=== PATIENT | female | born 1945 | race Caucasian/White ===

== ENCOUNTER 2017-10-20 12:03 | Day surgery (SDC) | payer OTHER ==
--- NOTE | 2017-10-20 09:10 | GHP ---
[f rep st] HISTORY AND PHYSICAL DATE OF ADMISSION: 10/20/2017 CHIEF COMPLAINT: Left groin mass. HISTORY OF PRESENT ILLNESS: The patient is a 72-year-old woman, who presented to the hospital approximately one year ago with a painful hernia. She developed a large seroma postoperatively. It is not totally resolved. She is continuing to have pain while sitting, bending and most movements. The pain is constant but is worsening with anything that puts a crease in her inguinal region. Nothing makes the pain better. She is very frustrated. PAST MEDICAL HISTORY: Colon cancer. PAST SURGICAL HISTORY: Right hemicolectomy, lysis of adhesions, PowerPort and excisional breast biopsy. ALLERGIES: Erythromycin and dyes SOCIAL HISTORY: She works at [employer]. She is a nonsmoker. REVIEW OF SYSTEMS: A 10-point review of systems negative. PHYSICAL EXAMINATION: GENERAL: Pleasant, well-nourished, well-groomed woman. PSYCHIATRIC: Frustrated. HEENT: Normocephalic. No gross hearing deficits. Mucous membranes moist. Pupils equal and round. No scleral icterus. LUNGS: Clear to auscultation bilaterally. No increased work of breathing. CARDIAC: Regular rate. ABDOMEN: Bowel sounds present, soft, nontender. No evidence of hernia. She does have a palpable tender mass in her left groin. EXTREMITIES: Normal gait. Normal nails. SKIN: Warm and dry. IMPRESSION AND PLAN: A 72-year-old with a mass in left groin following inguinal hernia repair. It is painful. She has tried conservative measures. I will take her to the operating room to excise this mass. The risks and benefits, including, but not limited to, stroke, heart attack, , blood clots, infection, bleeding, continued pain were all discussed. She had her questions answered to her satisfaction and signed the informed consent. /[id number]/MODL MTDD
[~2017-10-20 12:03] MED LIST: ceFAZolin 2 GM/SWFI 2 GM/20 ML SYR IVP ONE
--- NOTE | 2017-10-20 12:40 | PDHPUP ---
History & Physical Update H&P update statement: This history and physical update is based on an assessment of the patient which was completed after admission or registration (within 24 hours), but prior to the surgery/procedure. H&P update: H&P reviewed & patient examined, no change in patient's condition since H&P completed
[2017-10-20] MEDS ORDERED: ceFAZolin 2 GM/SWFI 20 ML SYR IVP ONE (12:42)
[2017-10-20] MEDS ORDERED: LIDOCAINE 1% 2 ML INJ ONE (12:42)
[2017-10-20] MEDS ORDERED: BUPIVACAINE 0.5% 30 ML SDV ONE (12:49)
[2017-10-20] MEDS ORDERED: BUPIVACAINE/EPI 0.5% 30 ML SDV ONE (12:50)
[2017-10-20 12:56] VITALS: PULSE 115
[2017-10-20] MEDS ORDERED: LR 1,000 ML IV ONE (13:03)
[2017-10-20] MEDS ORDERED: LIDOCAINE 1% 2 ML INJ ID PRN (13:03)
[2017-10-20] MEDS ORDERED: fentaNYL 100 MCG/2 ML INJ ONE ×2 (13:15→13:37)
[2017-10-20] MEDS ORDERED: fentaNYL 100 MCG/2 ML INJ IVP ONE (13:30)
--- NOTE | 2017-10-20 13:30 | PDANEPAE ---
<Ildefonso Burrell - Last Filed: 10/20/17 18:27> ANE History of Present Illness Painful groin mass ANE Past Medical History - Cardiovascular History Hx Hypertension: No Hx Arrhythmias: No Hx Chest Pain: No Hx Coronary Artery / Peripheral Vascular Disease: No Hx CHF / Valvular Disease: No Hx Palpitations: No - Pulmonary History Hx COPD: No Hx Asthma/Reactive Airway Disease: No Hx Recent Upper Respiratory Infection: No Hx Oxygen in Use at Home: No Hx Sleep Apnea: No Sleep Apnea Screening Result - Last Documented: Negative - Neurologic History Hx Cerebrovascular Accident: No Hx Seizures: No Hx Dementia: No - Endocrine History Hx Diabetes: No - Renal History Hx Renal Disorders: No - Liver History Hx Hepatic Disorders: No - Neurological & Psychiatric Hx Hx Neurological and Psychiatric Disorders: No - Cancer History Hx Cancer: Yes Cancer History Comment: R colon - Congenital Disorder History Hx Congenital Disorders: No - GI History Hx Gastrointestinal Disorders: Yes Gastrointestinal History Comment: Left inguinal hernia, problem digesting olive oil - Other Health History Other Health History: none - Chronic Pain History Chronic Pain: No - Surgical History Prior Surgeries: Lap RHemi-colectomy 10-19, Explor lap and port placed 11-20, removed 06-20, L shoulder mass excised 06-20, L breast mass -. ANE Review of Systems Review of Systems: - Exercise capacity METS (RN): 4 METS ANE Patient History - Allergies Allergies/Adverse Reactions: erythromycin base [Erythromycin Base] Allergy (Severe, Verified 08/27/16 10:57) SPASTIC PYLORIC VALUE BARBITUATES Allergy (Severe, Uncoded 12/02/11 13:34) EXTREMELY EXCITED/AGITATED DYES IN FOOD Allergy (Intermediate, Uncoded 12/02/11 13:34) HIVES/RASH ADHESIVE TAPE Allergy (Unknown, Uncoded 09/07/12 13:29) Rash - Home Medications Home medications: home medication list seen and reviewed Home Medications: Vitamin B-12 08/27/16 [Last Taken 10/19/17] [place] 5/325 (*) 10/16/17 [Last Taken 10/20/17 04:00] - NPO status NPO Since - Liquids (Date): 10/20/17 NPO Since - Liquids (Time): 09:00 NPO Since - Solids (Date): 10/19/17 NPO Since - Solids (Time): 18:00 - Smoking Hx Smoking Status: Never smoked - Family Anes Hx Family Hx Anesthesia Complications: none ANE Labs/Vital Signs - Vital Signs Blood Pressure: 165/95 Heart Rate: 115 Respiratory Rate: 20 O2 Sat (%): 92 Height: 165.1 cm Weight: 70.307 kg ANE Physical Exam - Airway Neck exam: FROM ANE Anesthesia Plan Anesthesia Plan: GA w LMA <Zenon Rai - Last Filed: 10/22/17 20:01> ANE History of Present Illness Left groin pain ANE Review of Systems Review of Systems: ANE Physical Exam - Airway Neck exam: FROM Mallampati Score: Class 2 Mouth exam: normal dental/mouth exam - Pulmonary Pulmonary: no respiratory distress - Cardiovascular Cardiovascular: regular rate and rhythym - ASA Status ASA Status: II ANE Anesthesia Plan Anesthesia Plan: GA w LMA (I had no interaction with this pt. but have no way to refuse signature- Zenon Rai MD)
[2017-10-20] MEDS ORDERED: PROPOFOL 200 MG/20 ML VIAL ONE (13:37)
[2017-10-20] MEDS ORDERED: ONDANSETRON 4 MG/2 ML VIAL IVP PRN (14:05)
[2017-10-20] MEDS ORDERED: PROMETHAZINE HCL 25 MG/ML INJ IVP PRN (14:05)
[2017-10-20] MEDS ORDERED: fentaNYL 100 MCG/2 ML INJ IVP PRN (14:05)
[2017-10-20] MEDS ORDERED: HYDROmorphONE/DILAUDID 1 MG/ML INJ IVP PRN (14:05)
[2017-10-20] MEDS ORDERED: NALOXONE HCL 0.4 MG/ML INJ IVP PRN (14:05)
--- NOTE | 2017-10-20 14:10 | PDANEPAE ---
ANE History of Present Illness Left groin mass/pain ANE Past Medical History - Cardiovascular History Hx Hypertension: No Hx Arrhythmias: No Hx Chest Pain: No Hx Coronary Artery / Peripheral Vascular Disease: No Hx CHF / Valvular Disease: No Hx Palpitations: No - Pulmonary History Hx COPD: No Hx Asthma/Reactive Airway Disease: No Hx Recent Upper Respiratory Infection: No Hx Oxygen in Use at Home: No Hx Sleep Apnea: No Sleep Apnea Screening Result - Last Documented: Negative - Neurologic History Hx Cerebrovascular Accident: No Hx Seizures: No Hx Dementia: No - Endocrine History Hx Diabetes: No - Renal History Hx Renal Disorders: No - Liver History Hx Hepatic Disorders: No - Neurological & Psychiatric Hx Hx Neurological and Psychiatric Disorders: No - Cancer History Hx Cancer: Yes Cancer History Comment: R colon - Congenital Disorder History Hx Congenital Disorders: No - GI History Hx Gastrointestinal Disorders: Yes Gastrointestinal History Comment: Left inguinal hernia, problem digesting olive oil - Other Health History Other Health History: none - Chronic Pain History Chronic Pain: No - Surgical History Prior Surgeries: Lap RHemi-colectomy 10-19, Explor lap and port placed 11-20, removed 06-20, L shoulder mass excised 06-20, L breast mass 02-19. ANE Review of Systems Review of Systems: - Exercise capacity METS (RN): 4 METS ANE Patient History - Allergies Allergies/Adverse Reactions: erythromycin base [Erythromycin Base] Allergy (Severe, Verified 08/27/16 10:57) SPASTIC PYLORIC VALUE BARBITUATES Allergy (Severe, Uncoded 12/02/11 13:34) EXTREMELY EXCITED/AGITATED DYES IN FOOD Allergy (Intermediate, Uncoded 12/02/11 13:34) HIVES/RASH ADHESIVE TAPE Allergy (Unknown, Uncoded 09/07/12 13:29) Rash - Home Medications Home medications: home medication list seen and reviewed Home Medications: Vitamin B-12 08/27/16 [Last Taken 10/19/17] [place] 5/325 (*) 10/16/17 [Last Taken 10/20/17 04:00] - NPO status NPO Since - Liquids (Date): 10/20/17 NPO Since - Liquids (Time): 09:00 NPO Since - Solids (Date): 10/19/17 NPO Since - Solids (Time): 18:00 - Smoking Hx Smoking Status: Never smoked - Family Anes Hx Family Hx Anesthesia Complications: none ANE Labs/Vital Signs - Vital Signs Blood Pressure: 165/95 Heart Rate: 115 Respiratory Rate: 20 O2 Sat (%): 92 Height: 165.1 cm Weight: 70.307 kg ANE Physical Exam - Airway Neck exam: FROM Mallampati Score: Class 2 Mouth exam: normal dental/mouth exam - Pulmonary Pulmonary: no respiratory distress - Cardiovascular Cardiovascular: regular rate and rhythym - ASA Status ASA Status: II ANE Anesthesia Plan Anesthesia Plan: GA w LMA
[2017-10-20] MEDS ORDERED: ONDANSETRON 4 MG/2 ML VIAL ONE ×2 (14:20→17:15)
[2017-10-20] MEDS ORDERED: DEXAMETHASONE 4 MG/ML VIAL ONE (14:20)
--- NOTE | 2017-10-20 14:32 | POSTOPPROG ---
Post Op Note Date of Operation: 10/20/17 Surgeon: Savanna Perez Certified Ethical Hacker: kimi Anesthesiologist: pramod Anesthesia: GET(General Endotracheal) Pre-op Diagnosis: left groin mass Post-op Diagnosis: same Indication: 72 yo s/p left inguinal hernia. Procedure: excision left inguinal mass Findings: encapsulated Inf/Abcess present in the surg proc area at time of surgery?: No EBL: Minimal Specimen(s): micro and permanent
--- NOTE | 2017-10-20 14:43 | POSTANESTH ---
Post Anesthetic Evaluation Cardiovascular Status: Normal, Stable Respiratory Status: Normal, Stable Level of Consciousness/Mental Status: Can Participate in Eval Pain Control: Adequate, Prn Tx Ordered Nausea/Vomiting Control: Adequate, Prn Tx Ordered Complications Possibly Related to Anesthesia: None Noted
[2017-10-20 15:13] VITALS: TEMP 97.7
--- NOTE | 2017-10-20 17:59 | PDHOMEO2F ---
Home Oxygen Face to Face Home Orders: I certify that a physician or a nurse practitioner or physician's certified ophthalmic surgical assistant has had a [id number] encounter with this patient on the date of this order due to the diagnosis listed, which relates to the primary reason the patient requires home oxygen. Alternative treatments have been tried, or considered, and deemed ineffective. It is anticipated that supplemental oxygen will result in improvement with treatment. Home oxygen qualifying diagnosis: Post-op hypoxia SpO2 on room air (%): 84 Frequency of home oxygen needed: continuous Home oxygen liters per minute: 2 Home oxygen delivery device: nasal cannula Concentrator: No E-tanks for mobility and back up: Yes If ordering portable O2, is the patient mobile in the home?: Yes I certify that, based on these findings, the home oxygen is medically necessary for this patient for the following length of time. Length of time home oxygen needed: 1 week (To be evaluated tomorrow)
[2017-10-20 18:28] VITALS: RESP 20
[2017-10-20 18:41] VITALS: O2SAT 93
[2017-10-20 21:23] VITALS: BP 145/89
== END 2017-10-20 19:50 | disposition home or self-care (01) ==
LOC: FSGY 12:03
PROVIDERS: ATTEND Surgery
PROC: 0YB60ZX Excision of Left Inguinal Region, Open Approach, Diagnostic (ICD-10-PCS; principal; 2017-10-20 13:30)
DX: L90.5 Scar conditions and fibrosis of skin (principal); Z85.038 Personal history of other malignant neoplasm of large intestine; Z90.49 Acquired absence of other specified parts of digestive tract
CPT/HCPCS: J0690; J1100; J2405; J2704; J3010

== ENCOUNTER 2018-02-08 06:46 | Emergency (ER) | payer OTHER ==
--- NOTE | 2018-02-08 06:59 | CPEKG ---
Heart Rate: 108 RR Interval: 556 P-R Interval: 144 QRSD Interval: 72 QT Interval: 320 QTC Interval: 429 P Glidden: 45 QRS Glidden: -13 T Wave Glidden: 30 EKG Severity - ABNORMAL ECG - EKG Impression: SINUS TACHYCARDIA EKG Impression: LEFT VENTRICULAR HYPERTROPHY Electronically Signed By: Akil Gutierrez 08-Feb-2018 13:31:42
--- NOTE | 2018-02-08 07:00 | EDPHY ---
H & P Stated Complaint: left side CP Time Seen by Provider: 02/08/18 06:59 - Personal History Current Tetanus/Diphtheria Vaccine: Yes Current Tetanus Diphtheria and Acellular Pertussis (TDAP): Yes Tetanus Vaccine Date: 2002 - Medical/Surgical History Hx Asthma: No Hx Chronic Respiratory Disease: No Hx Diabetes: No Hx Cardiac Disease: No Hx Renal Disease: No Hx Cirrhosis: No Hx Alcoholism: No Hx HIV/AIDS: No Hx Splenectomy or Spleen Trauma: No Other PMH: port implant, hernia, breast biopsy - Social History Smoking Status: Never smoked Constitutional: Initial Vital Signs Temperature (C) 36.3 C 02/08/18 06:48 Heart Rate 112 H 02/08/18 06:48 Respiratory Rate 18 02/08/18 06:48 Blood Pressure 184/99 H 02/08/18 06:48 O2 Sat (%) 92 02/08/18 06:48 O2 Delivery Mode Room Air Allergies/Adverse Reactions: erythromycin base [Erythromycin Base] Allergy (Severe, Verified 02/08/18 06:52) SPASTIC PYLORIC VALUE BARBITUATES Allergy (Severe, Uncoded 02/08/18 06:52) EXTREMELY EXCITED/AGITATED DYES IN FOOD Allergy (Intermediate, Uncoded 02/08/18 06:52) HIVES/RASH ADHESIVE TAPE Allergy (Unknown, Uncoded 02/08/18 06:52) Rash Home Medications: Medication Instructions Recorded Aspirin 02/08/18 Medical Decision Making - Diagnostics Imaging Results: Imaging Impressions Chest X-Ray 02/08/18 07:08 Impression: Left basilar opacity probably reflects atelectasis. Imaging: I viewed and interpreted images myself ED Course/Re-evaluation: CHIEF COMPLAINT: Chest pain HISTORY OF PRESENT ILLNESS: The patient is a 73 y/o female with a history of colon cancer post chemotherapy and surgical treatment complaining of sharp left- sided chest pain radiating into her left arm that she noticed upon waking this morning. Her pain is localized pinpoint over focal area of her left anterior chest and reproducible with palpation. Upon arriving at work this morning she also began to feel "hot, sweaty, and clammy" with some associated nausea. She also says, "I could hear my hear in my ear." She notes she also felt hungover this morning after celebrating her birthday yesterday. She denies dyspnea, cough , fever, abdominal pain, vomiting, diarrhea. She had similar symptoms a few months ago that resolved and she was never evaluated for them. She has never had a cardiac stress test, but did have echocardiograms performed while she was undergoing chemotherapy. REVIEW OF SYSTEMS: A 10 point review of systems was performed and is negative with the exception of the elements mentioned in the history of present illness. PHYSICAL EXAM: HR, BP, O2 Sat, RR. Temp noted General Appearance: Alert, well hydrated, appropriate, and non-toxic appearing. Extremely anxious. Head: Atraumatic without scalp tenderness or obvious injury Eyes: Pupils equal, round, reactive to light and accommodation, EOMI, no trauma , no injection. Nose: Atraumatic, no rhinorrhea, clear. Throat: Mucus membranes moist. Neck: Supple, nontender, no lymphadenopathy. Respiratory: No retractions, no distress, no wheezes, and no accessory muscle use. Lungs are clear to auscultation bilaterally. Cardiovascular: Tachycardic regular rate and rhythm, no murmurs, rubs, or gallops. Good capillary refill all extremities. Chest: Reproducible tenderness over left anterior chest wall approximately 2cm in diameter. Gastrointestinal: Abdomen is soft, nontender, non-distended, no masses, no rebound, no guarding, no peritoneal signs. Musculoskeletal: Normal active ROM of all extremities, atraumatic. Neurological: Alert, appropriate, and interactive. The patient has non-focal cranial nerves, motor, sensory, and cerebellar exam. Skin: No rashes, good turgor, no nodules on palpation. 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 Nonsmoker. Oncologist: Dr. Vázquez. Surgery: Dr. Perez/Dr. Kaplan. DIAGNOSTICS/PROCEDURES/CRITICAL CARE TIME: The 12 lead EKG was interpreted by myself. Sinus tachycardia. No ischemia. See hard copy and/or "tracemaster" electronic copy for interpretation. Chest x-ray: no infiltrate DIFFERENTIAL DIAGNOSIS: The differential diagnosis for the patient's chest pain included but was not limited to myocardial ischemia, pulmonary embolus, chest wall pain, pleural inflammation, and pulmonary infectious causes. MEDICAL DECISION MAKING: This is an anxious-appearing 73 y/o female who presents with focal and reproducible left-sided tenderness she noticed upon waking this morning after a night of heavy drinking. Her presentation likely indicates musculoskeletal chest pain, but due to age and lack of prior cardiac risk stratification testing , plan for standard cardiac work up with IV, labs, EKG, chest x-ray. D-dimer elevated, but based on age-adjusted cut-off for d-dimer and lack of pretest probability, will not pursue chest CTA for this. Labs otherwise unremarkable. Reassessed patient and discussed findings. She is comfortable with plan for discharge home. She understands she should follow up with independent sales representative for risk stratification soon. Return precautions discussed. She is comfortable with this plan. - Data Points Laboratory Results: Laboratory Results 02/08/18 07:00 02/08/18 07:00 02/08/18 02/08/18 02/08/18 07:00 07:00 07:00 WBC 6.10 10^3/uL 10^3/uL (3.80-9.50) RBC 5.30 10^6/uL 10^6/uL (4.18-5.33) Hgb 15.0 g/dL g/dL (12.6-16.3) Hct 47.1 % H % (38.0-47.0) MCV 88.9 fL fL (81.5-99.8) MCH 28.3 pg pg (27.9-34.1) MCHC 31.8 g/dL L g/dL (32.4-36.7) RDW 14.4 % % (11.5-15.2) Plt Count 249 10^3/uL 10^3/uL (150-400) MPV 10.2 fL fL (8.7-11.7) Neut % (Auto) 59.6 % % (39.3-74.2) Lymph % (Auto) 21.1 % % (15.0-45.0) Whitley % (Auto) 11.3 % % (4.5-13.0) Eos % (Auto) 5.2 % % (0.6-7.6) Baso % (Auto) 2.0 % H % (0.3-1.7) Nucleat RBC Rel Count 0.0 % % (0.0-0.2) Absolute Neuts (auto) 3.63 10^3/uL 10^3/uL (1.70-6.50) Absolute Lymphs (auto) 1.29 10^3/uL 10^3/uL (1.00-3.00) Absolute Monos (auto) 0.69 10^3/uL 10^3/uL (0.30-0.80) Absolute Eos (auto) 0.32 10^3/uL 10^3/uL (0.03-0.40) Absolute Basos (auto) 0.12 10^3/uL H 10^3/uL (0.02-0.10) Absolute Nucleated RBC 0.00 10^3/uL 10^3/uL (0-0.01) Immature Gran % 0.8 % % (0.0-1.1) Immature Gran # 0.05 10^3/uL 10^3/uL (0.00-0.10) D-Dimer 0.58 ug/mLFEU H ug/mLFEU (0.00-0.50) Sodium 142 mEq/L mEq/L (135-145) Potassium 4.4 mEq/L mEq/L (3.5-5.2) Chloride 106 mEq/L mEq/L (97-110) Carbon Dioxide 21 mEq/l L mEq/l (22-31) Anion Gap 15 mEq/L mEq/L (8-16) BUN 21 mg/dL mg/dL (7-23) Creatinine 0.7 mg/dL mg/dL (0.6-1.0) Estimated GFR > 60 Glucose 105 mg/dL H mg/dL (70-100) Calcium 9.3 mg/dL mg/dL (8.5-10.4) Troponin I < 0.012 ng/mL ng/mL (0.000-0.034) NT-Pro-B Natriuret Pep 52 pg/mL pg/mL (0-450) Medications Given: Discontinued Medications Sodium Chloride (Ns) 1,000 mls @ 0 mls/hr IV EDNOW ONE; Wide Open PRN Reason: Protocol Stop: 02/08/18 07:12 Last Admin: 02/08/18 07:15 Dose: 1,000 mls Lorazepam (Ativan Injection) 1 mg IVP EDNOW ONE Stop: 02/08/18 07:12 Last Admin: 02/08/18 07:15 Dose: 1 mg Departure - Departure Disposition: Home, Routine, Self-Care Clinical Impression: Musculoskeletal chest pain Condition: Good Instructions: Noncardiac Chest Pain (ED), Chest Wall Pain (ED) Additional Instructions: 1. Follow up with Dr. Duque, independent sales representative, in the next week for provocative cardiac stress testing. 2. Use ibuprofen or Tylenol as directed on the packaging if needed for pain over the next few days. 3. Return to the ED for worsening of condition. Referrals: Dina Vázquez MD [Primary Care Provider] - As per Instructions Joce Duque MD [Medical Doctor] - As per Instructions Report Scribed for: Akil Gutierrez Report Scribed by: Julianna Leslie Date of Report: 02/08/18 Time of Report: 07:00
[2018-02-08] MEDS ORDERED: LORazepam 2 MG/ML INJ IVP ONE (07:11)
[2018-02-08] MEDS ORDERED: NS 1,000 ML IV ONE (07:11)
[2018-02-08 07:16] LABS: PLATELET COUNT 249 10^3/uL (150-400)
[2018-02-08 08:26] VITALS: RESP 20; O2SAT 93
[2018-02-08 08:45] VITALS: BP 153/94; PULSE 99; TEMP 97.5
== END 2018-02-08 08:47 | disposition home or self-care (01) ==
DX: R07.89 Other chest pain (principal); E86.9 Volume depletion, unspecified; Z79.82 Long term (current) use of aspirin
CPT/HCPCS: 96374; J2060

== ENCOUNTER → 2018-04-23 | Outpatient (CLI) | payer OTHER | LOC: FIMAGING 11:38 | PROVIDERS: ATTEND Internal Medicine Hematology & Oncology | DX: R06.02 Shortness of breath (principal); M47.894 Other spondylosis, thoracic region ==